=== PATIENT | male | born 1955 | race Caucasian/White ===

== ENCOUNTER → 2016-10-24 | Outpatient (CLI) | payer SELFPAY ==
--- NOTE | 2016-10-24 13:28 | XR ---
EXAMINATION TYPE: XR chest 2V DATE OF EXAM: 10/24/2016 9:46 AM COMPARISON: NONE HISTORY: +PPD skin test. TB exposure. TECHNIQUE: Frontal and lateral views of the chest are obtained. FINDINGS: There is no focal air space opacity, pleural effusion, or pneumothorax seen. The cardiac silhouette size is within normal limits. Some multilevel spurring in the spine is present. IMPRESSION: No acute cardiopulmonary process.
== END | disposition home or self-care (01) ==
LOC: EDBD 09:36 → RADXRMAIN 09:36
PROVIDERS: ATTEND Family Medicine
DX: Z11.1 Encounter for screening for respiratory tuberculosis (principal)
CPT/HCPCS: 71020